=== PATIENT | male | born 1975 | race Caucasian/White ===

== ENCOUNTER 2017-07-19 19:01 | Observation (INO) | payer OTHER ==
[~2017-07-19] VITALS: Ht 182.9 cm; Wt 114.1 kg
[2017-07-19] MEDS ORDERED: NITROGLYCERIN 0.4 MG SL TABS BTL 25'S SL ONE (19:06)
[2017-07-19] MEDS ORDERED: ASPIRIN 81 MG CHEW (CHILDREN'S ASA) ONE (19:08)
[2017-07-19] MEDS ORDERED: ASPIRIN 81 MG CHEW (CHILDREN'S ASA) PO ONE (19:15)
[2017-07-19] MEDS ORDERED: NITROGLYCERIN 0.4 MG SL TABS BTL 25'S SL PRN ×2 (19:15→22:15)
--- NOTE | 2017-07-19 19:28 | ED Chest Pain ---
General Stated Complaint: CHEST PAIN, LT ARM PAIN Source: patient History of Present Illness Time seen by provider: 19:10 Initial Comments PT ARRIVES VIA POV C/O CHEST PAIN PT STATES HE HAD CLIMBED INTO HIS DEER STAND WHEN PAIN BEGAN--STATES PAIN WAS SO BAD HE LEFT HIS DEER STAND WITH MULTIPLE DEER UNDER HIM AND GREAT WEATHER FOR HUNTING, SOMETHING HE WOULD NEVER DO IF HE WASN'T HURTING SO BAD. RATES PAIN 8/10 AT WORST, 5/10 NOW--SQUEEZING/PRESSURE IN CHEST AND HAS "INDIGESTION" PAIN INCREASES WITH ANY ACTIVITY AND EASES WITH REST + TINGLING AND PAIN DOWN LEFT ARM + SWEATS + NAUSEA + SHORTNESS OF BREATH NO SWELLING IN LEGS/ FEET OR PAIN IN CALVES --NO RECENT TRAVEL, PROLONGED SITTING, ETC. HAD SAME THING 1 1/2-2 WEEKS AGO, LASTED FOR 4 DAYS OFF AND ON--DID NOT SEEK CARE HAS HAD SIMILAR AND WAS LAST SEEN APPROXIMATELY A YEAR AGO--SEEN AT SHOW LOW, WAS THOUGHT TO BE GERD AND ANXIETY--PT HAS HAD RACHEL FUNDOPLICATION PCP: DR. Caleb SIERRA, SHOW LOW--BUT HAS NOT SEEN IN A LONG TIME-STATES HE NEVER GOES TO THE DR. Allergies and Home Medications Allergies Coded Allergies: No Known Drug Allergies (Unverified , 07/19/17) Review of Systems Constitutional: see HPI, diaphoresis, No dizziness EENTM: No Symptoms Reported Respiratory: See HPI, Denies Cough, Denies Orthopnea, Shortness of Air, SOA With Exertion Cardiovascular: See HPI, Chest Pain, Denies Edema, Denies Irregular Heart Rate , Denies Lightheadedness, Denies Palpitations, Denies Syncope Gastrointestinal: See HPI, Denies Abdominal Pain, Nausea, Denies Vomiting Genitourinary: No Symptoms Reported Musculoskeletal: see HPI Skin: no symptoms reported Psychiatric/Neurological: See HPI Endocrine: No Symptoms Reported Hematologic/Lymphatic: No Symptoms Reported Past Mmauups-Qvtvqs-Gzstrh Hx Patient Social History Alcohol Use: Occasionally Uses Recreational Drug Use: No Type Used: Smokeless Tobacco Surgeries History of Surgeries: Yes (EGD'S; RACHEL FUNDOPLICATION) Surgeries: Abdominal (RACHEL FUNDOPLICATION) Respiratory History of Respiratory Disorde: No Cardiovascular History of Cardiac Disorders: No Neurological History of Neurological Disord: No Genitourinary History of Genitourinary Disor: No Gastrointestinal History of Gastrointestinal Di: Yes Gastrointestinal Disorders: Gastroesophageal Reflux, Hiatal Hernia Musculoskeletal History of Musculoskeletal Dis: Yes (RIGHT TIB-FIB FX, NO SURGERY) Musculoskeletal Disorders: Fractures Endocrine History of Endocrine Disorders: No HEENT History of HEENT Disorders: No Cancer History of Cancer: No Psychosocial History of Psychiatric Problem: No Integumentary History of Skin or Integumenta: No Blood Transfusions History of Blood Disorders: No Family Medical History Significant Family History: Heart Disease (BOTH PARENTS HAD NE'S, MOM HAD CHF) , CAD Over 55 Years Old (MOM AGE 62 OF CAD/NE/CHF, DAD AGE 72 OF CAD/ CVA), Stroke (DAD) Physical Exam Vital Signs Vital Sign - Last 12Hours Capillary Refill : General Appearance: No Apparent Distress, WD/WN HEENT: PERRL/EOMI Neck: Full Range of Motion, Normal Inspection, Non Tender, Supple, No Carotid Bruit, No JVD Respiratory: Chest Non Tender, Normal Breath Sounds, No Accessory Muscle Use, No Respiratory Distress Cardiovascular: Regular Rate, Rhythm, No Edema, No JVD, No Murmur, Normal Peripheral Pulses Gastrointestinal: Normal Bowel Sounds, No Organomegaly, No Pulsatile Mass, Non Tender, Soft Extremity: Normal Capillary Refill, Normal Inspection, Normal Range of Motion, Non Tender, No Calf Tenderness, No Pedal Edema Neurologic/Psychiatric: Alert, Oriented x3, No Motor/Sensory Deficits, Normal Mood/Affect, 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 and 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 II-XII Norm as Tested Skin: Normal Color, Warm/Dry Progress/Results/Core Measures Results/Orders Lab Results Laboratory Tests Test 07/19/17 19:15 Range/Units White Blood Count 6.7 4.3-11.0 10^3/uL Red Blood Count 5.31 4.35-5.85 10^6/uL Hemoglobin 15.8 13.3-17.7 G/DL Hematocrit 47 40-54 % Mean Corpuscular Volume 88 80-99 FL Mean Corpuscular Hemoglobin 30 25-34 PG Mean Corpuscular Hemoglobin Concent 34 32-36 G/DL Red Cell Distribution Width 12.3 10.0-14.5 % Platelet Count 217 130-400 10^3/uL Mean Platelet Volume 10.8 H 7.4-10.4 FL Neutrophils (%) (Auto) 57 42-75 % Lymphocytes (%) (Auto) 24 12-44 % Monocytes (%) (Auto) 14 H 0-12 % Eosinophils (%) (Auto) 5 0-10 % Basophils (%) (Auto) 0 0-10 % Neutrophils # (Auto) 3.8 1.8-7.8 X 10^3 Lymphocytes # (Auto) 1.6 1.0-4.0 X 10^3 Monocytes # (Auto) 0.9 0.0-1.0 X 10^3 Eosinophils # (Auto) 0.4 H 0.0-0.3 10^3/uL Basophils # (Auto) 0.0 0.0-0.1 10^3/uL Prothrombin Time 12.5 12.2-14.7 SEC INR Comment 0.9 0.8-1.4 Activated Partial Thromboplast Time 25 24-35 SEC Sodium Level 140 135-145 MMOL/L Potassium Level 4.1 3.6-5.0 MMOL/L Chloride Level 104 98-107 MMOL/L Carbon Dioxide Level 26 21-32 MMOL/L Anion Gap 10 5-14 MMOL/L Blood Urea Nitrogen 14 7-18 MG/DL Creatinine 1.08 0.60-1.30 MG/DL Estimat Glomerular Filtration Rate > 60 BUN/Creatinine Ratio 13 Glucose Level 89 70-105 MG/DL Calcium Level 10.1 8.5-10.1 MG/DL Magnesium Level 2.2 1.8-2.4 MG/DL Total Bilirubin 0.3 0.1-1.0 MG/DL Aspartate Amino Transf (AST/SGOT) 23 5-34 U/L Alanine Aminotransferase (ALT/SGPT) 40 0-55 U/L Alkaline Phosphatase 84 40-136 U/L Total Creatine Kinase 282 H 30-200 U/L Creatine Kinase MB 3.8 <6.6 NG/ML Troponin I < 0.30 <0.30 NG/ML B-Type Natriuretic Peptide < 10.0 <100.0 PG/ML Total Protein 7.8 6.4-8.2 GM/DL Albumin 4.6 H 3.2-4.5 GM/DL Amylase Level 46 25-125 U/L Lipase 14 8-78 U/L My Orders Orders - GURJIT YOUNG DO Amylase (07/19/17 19:12) Cbc With Automated Diff (07/19/17 19:12) Comprehensive Metabolic Panel (07/19/17 19:12) Creatine Kinase (10/3/17 19:12) Creatine Kinase Mb (07/19/17 19:12) Lipase (07/19/17 19:12) Partial Thromboplastin Time (07/19/17 19:12) Protime With Inr (07/19/17 19:12) Troponin I (07/19/17 19:12) Chest 1 View, Ap/Pa Only (07/19/17 19:12) O2 (07/19/17 19:12) Nitroglycerin 0.4 Mg Btl 25's (Nitrostat (07/19/17 19:06) Ekg Tracing (07/19/17 19:12) BNP (07/19/17 19:12) Monitor-Rhythm Ecg Trace Only (07/19/17 19:12) Magnesium (07/19/17 19:12) Aspirin Chewable Tablet (Baby Aspirin Ch (07/19/17 19:15) Nitroglycerin 0.4 Mg Btl 25's (Nitrostat (07/19/17 19:15) Aspirin Chewable Tablet (Baby Aspirin Ch (07/19/17 19:08) Acetaminophen Tablet (Tylenol Tablet) (07/19/17 19:30) Saline Lock/Iv-Start (07/19/17 19:37) Ns Iv 1000 Ml (Sodium Chloride 0.9%) (07/19/17 19:37) Nitroglycerin Ointment (Nitrobid Ointme (07/19/17 19:45) Ct Angio Chest W (07/19/17 20:06) Nitroglycerin Ointment (Nitrobid Ointme (07/19/17 20:15) Morphine Injection (Morphine Injection (07/19/17 20:11) Iohexol Injection (Omnipaque 350 Mg/Ml 1 (07/19/17 20:45) Ns (Ivpb) (Sodium Chloride 0.9% Ivpb Bag (07/19/17 20:45) Medications Given in ED Current Medications Medications Dose Ordered Sig/Naila Route Start Time Stop Time Status Last Admin Dose Admin Acetaminophen 1,000 mg ONCE ONCE PO 07/19/17 19:30 07/19/17 19:31 DC 07/19/17 19:26 1,000 MG Aspirin 324 mg ONCE ONCE PO 07/19/17 19:15 07/19/17 19:16 DC 07/19/17 19:07 324 MG Iohexol 150 ml ONCE ONCE IV 07/19/17 20:45 07/19/17 21:08 DC 07/19/17 20:33 125 ML Nitroglycerin 0.5 inch ONCE ONCE TOP 07/19/17 19:45 07/19/17 19:47 DC 07/19/17 19:50 0.5 INCH Nitroglycerin 1 TAB Q 5 MIN X 3 NEEDED PRN SL 07/19/17 19:15 07/19/17 22:11 DC 07/19/17 19:20 0.4 MG Nitroglycerin 1 inch ONCE ONCE TOP 07/19/17 20:15 07/19/17 20:16 DC 07/19/17 20:19 1 INCH Sodium Chloride 100 ml ONCE ONCE IV 07/19/17 20:45 07/19/17 21:08 DC 07/19/17 20:34 80 ML Sodium Chloride 1,000 ml @ 0 mls/hr Q0M ONCE IV 07/19/17 19:37 07/19/17 19:38 DC 07/19/17 20:18 1,000 MLS/HR Vital Signs/I&O Vital Sign - Last 12Hours 07/19/17 07/19/17 07/19/17 19:03 19:03 19:03 Temp 97.8 Pulse 92 Resp 18 B/P (MAP) 144/118 Pulse Ox 97 99 O2 Delivery Room Air Nasal Cannula Room Air Progress Note : Progress Note PAIN -FREE WITH NTG X 1, INITIALLY, THEN PAIN AND SHORTNESS OF BREATH GRADUALLY RETURNED--PT RESTLESS, STATING HE "CAN'T GET COMFORTABLE" DUE TO PAIN AND FEELING SHORT OF BREATH O2 SATS 92-94% ON ROOM AIR--UP TO 96-97% ON O2 AT 2L/NC GIVEN NITROPASTE FOR ELEVATED BP WELL CP/SOB--BOTH MUCH IMPROVED AT TIME OF ADMIT. BP DOWN TO 120'S/90'S ECG Initial ECG Impression Time: 19:05 Initial ECG Rate: 89 Initial ECG Rhythm: Normal Sinus Initial ECG Impression: Normal Initial ECG Comparisson: No Previous ECG Available Diagnostic Imaging Comments CXR--NO ACUTE PROCESS CT CHEST ANGIOGRAM--NO ACUTE PROCESS, SMALL HIATAL HERNIA, DIFFUSE HEPATIC STEATOSIS PER RADIOLOGIST REPORTS @ 2108 Reviewed: Reviewed by Me Departure Communication (Admissions) Progress Notes 2114--SPOKE WITH DR. BLANCHARD, ACCEPTS PT FOR ADMIT. WILL HAVE CARDIOLOGY CONSULTED IN AM Impression Impression: Primary Impression: Chest pain Additional Impression: HTN (hypertension) Disposition: ADMITTED INPATIENT Condition: Improved Departure-Patient Inst. Referrals: NO,LOCAL PHYSICIAN (PCP/Family) Primary Care Physician GURJIT YOUNG DO Jul 19, 2017 19:28
[2017-07-19 19:30] LABS: BASOPHILS % (AUTO) 0 % (0-10); EOSINOPHILS # (AUTO) 0.4 10^3/uL (0.0-0.3); EOSINOPHILS % (AUTO) 5 % (0-10); LYMPHOCYTES # (AUTO) 1.6 X 10^3 (1.0-4.0); LYMPHOCYTES % (AUTO) 24 % (12-44); MEAN CORPUSCULAR HEMOGLOBIN 30 PG (25-34); MEAN CORPUSCULAR HGB CONC 34 G/DL (32-36); MEAN CORPUSCULAR VOLUME 88 FL (80-99); MEAN PLATELET VOLUME 10.8 FL (7.4-10.4); MONOCYTES # (AUTO) 0.9 X 10^3 (0.0-1.0); MONOCYTES % (AUTO) 14 % (0-12); NEUTROPHILS # (AUTO) 3.8 X 10^3 (1.8-7.8); NEUTROPHILS % (AUTO) 57 % (42-75); PLATELET COUNT 217 10^3/uL (130-400); RED BLOOD COUNT 5.31 10^6/uL (4.35-5.85); RED CELL DISTRIBUTION WIDTH 12.3 % (10.0-14.5); WHITE BLOOD COUNT 6.7 10^3/uL (4.3-11.0)
[2017-07-19] MEDS ORDERED: ACETAMINOPHEN 500 MG TAB (TYLENOL) PO ONE (19:30)
[2017-07-19] MEDS ORDERED: NS IV 1000 ML 1,000 ML IV ONE (19:37)
[2017-07-19 19:40] LABS: INR 0.9 (0.8-1.4); PROTHROMBIN TIME PATIENT 12.5 SEC (12.2-14.7)
[2017-07-19] MEDS ORDERED: NITROGLYCERIN 2% OINT 1 GM UNIT DOSE PACKET TOP ONE ×2 (19:45→20:15)
[2017-07-19 19:52] LABS: ALANINE AMINOTRANSFERASE 40 U/L (0-55); ALBUMIN 4.6 GM/DL (3.2-4.5); AMYLASE 46 U/L (25-125); ANION GAP 10 MMOL/L (5-14); ASPARTATE AMINO TRANSFERASE 23 U/L (5-34); BILIRUBIN,TOTAL 0.3 MG/DL (0.1-1.0); BLOOD UREA NITROGEN 14 MG/DL (7-18); BUN/CREATININE RATIO 13; CALCIUM 10.1 MG/DL (8.5-10.1); CARBON DIOXIDE 26 MMOL/L (21-32); CHLORIDE 104 MMOL/L (98-107); CREATINE KINASE 282 U/L (30-200); CREATININE SERUM 1.08 MG/DL (0.60-1.30); GFR ESTIMATED > 60; GLUCOSE 89 MG/DL (70-105); LIPASE 14 U/L (8-78); MAGNESIUM 2.2 MG/DL (1.8-2.4); POTASSIUM 4.1 MMOL/L (3.6-5.0); SODIUM 140 MMOL/L (135-145); TOTAL PROTEIN 7.8 GM/DL (6.4-8.2)
[2017-07-19 19:59] LABS: TROPONIN I < 0.30 NG/ML (<0.30)
[2017-07-19] MEDS: morphine INJ 10 MG/ML 1ML (SYR OR VIAL) IVP STA ×2 (20:19→20:50)
--- NOTE | 2017-07-19 20:21 | Diagnostic Imaging Report ---
INDICATION: Chest pain COMPARISON: None FINDINGS: Upright portable view of the chest is obtained. Heart size is normal. The pulmonary vessels appear unremarkable. There is no pneumothorax, mediastinal widening or pleural fluid demonstrated. The lungs are clear. IMPRESSION: Negative chest Dictated by: Dictated on workstation # [id number]
[2017-07-19] MEDS ORDERED: NS 100 ML (IVPB) BAG IV ONE (20:45)
[2017-07-19] MEDS ORDERED: IOHEXOL 350 MG/ML 150 ML (OMNIPAQUE 350) VIAL IV ONE (20:45)
--- NOTE | 2017-07-19 21:04 | Diagnostic Imaging Report ---
PROCEDURE: CT angiography of the chest with contrast. TECHNIQUE: Multiple contiguous axial images were obtained through the chest after uneventful bolus administration of intravenous contrast. Reconstructed CTA MIP acquisitions were also performed. INDICATION: Chest pain COMPARISON: None FINDINGS: There is no evidence of pulmonary embolus or other acute vascular abnormality. There is some residual thymic tissue in the mediastinum. No adenopathy is demonstrated. There is no pneumothorax or pleural fluid demonstrated. There is a calcified granuloma in the right lung apex. A few additional calcified granulomata are noted. The lungs are otherwise clear. There is no pericardial effusion. There is a small hiatal hernia. There is diffuse hepatic steatosis. There is a probable cyst in the inferior right hepatic lobe. IMPRESSION: 1. No evidence of pulmonary embolus or other acute abnormality in the chest. 2. Small hiatal hernia 3. Diffuse hepatic steatosis and hepatic cysts Dictated by: Dictated on workstation # [id number]
[2017-07-19 22:14] VITALS: BP 125/83
[2017-07-19 22:15] VITALS: BP 129/81
[2017-07-19] MEDS ORDERED: morphine INJ 4 MG/ML 1 ML (VIAL/SYRINGE) IV PRN (22:15)
[2017-07-19 22:30] VITALS: BP 128/83
[2017-07-19 22:45] VITALS: BP 131/87
[2017-07-19] MEDS: ACETAMINOPHEN 500 MG TAB (TYLENOL) PO PRN (22:50)
[2017-07-19 23:00] VITALS: BP 116/79
[2017-07-20] VITALS (10 sets, daily range): BP systolic 99–133; BP diastolic 57–90
[2017-07-20] MEDS ORDERED: PANTOPRAZOLE 40 MG/10 ML (PROTONIX) VIAL IV ONE (00:15)
[2017-07-20] MEDS: CATHETER FLUSH 10 ML SYR IV PRN ×2 (00:23→12:16)
[2017-07-20 01:59] LABS: MYOGLOBIN SERUM 100.4 NG/ML (10.0-92.0)
[2017-07-20] MEDS ORDERED: NITROGLYCERIN 2% OINT 1 GM UNIT DOSE PACKET TOP SCH (02:00)
[2017-07-20 04:33] LABS: BASOPHILS % (AUTO) 0 % (0-10); EOSINOPHILS # (AUTO) 0.4 10^3/uL (0.0-0.3); EOSINOPHILS % (AUTO) 6 % (0-10); LYMPHOCYTES # (AUTO) 2.2 X 10^3 (1.0-4.0); LYMPHOCYTES % (AUTO) 36 % (12-44); MEAN CORPUSCULAR HEMOGLOBIN 30 PG (25-34); MEAN CORPUSCULAR HGB CONC 34 G/DL (32-36); MEAN CORPUSCULAR VOLUME 89 FL (80-99); MONOCYTES # (AUTO) 0.8 X 10^3 (0.0-1.0); MONOCYTES % (AUTO) 12 % (0-12); NEUTROPHILS # (AUTO) 2.9 X 10^3 (1.8-7.8); NEUTROPHILS % (AUTO) 46 % (42-75); PLATELET COUNT 209 10^3/uL (130-400); RED BLOOD COUNT 4.67 10^6/uL (4.35-5.85); RED CELL DISTRIBUTION WIDTH 12.4 % (10.0-14.5); WHITE BLOOD COUNT 6.2 10^3/uL (4.3-11.0)
[2017-07-20 05:00] LABS: ALANINE AMINOTRANSFERASE 32 U/L (0-55); ANION GAP 10 MMOL/L (5-14); ASPARTATE AMINO TRANSFERASE 16 U/L (5-34); BLOOD UREA NITROGEN 12 MG/DL (7-18); BUN/CREATININE RATIO 13; CALCIUM 8.7 MG/DL (8.5-10.1); CARBON DIOXIDE 24 MMOL/L (21-32); CHLORIDE 106 MMOL/L (98-107); CHOLESTEROL 165 MG/DL (< 200); CREATININE SERUM 0.95 MG/DL (0.60-1.30); DIRECT LDL 94 MG/DL (1-129); GFR ESTIMATED > 60; GLUCOSE 96 MG/DL (70-105); POTASSIUM 3.6 MMOL/L (3.6-5.0); SODIUM 140 MMOL/L (135-145); TOTAL PROTEIN 6.2 GM/DL (6.4-8.2); TRIGLYCERIDES 240 MG/DL (<150); VLDL CHOLESTEROL 48 MG/DL (5-40)
[2017-07-20 05:14] LABS: ALBUMIN 3.8 GM/DL (3.2-4.5); BILIRUBIN,TOTAL 0.4 MG/DL (0.1-1.0)
[2017-07-20] MEDS: CATHETER FLUSH 10 ML SYR IV SCH ×2 (06:01→13:22)
[2017-07-20] MEDS ORDERED: INFLUENZA TRIvalent 2017-2018 0.5 ML/45 MCG SYR IM ONE (07:15)
--- NOTE | 2017-07-20 08:42 | Consultation-Cardiology ---
HPI-Cardiology Cardiology Consultation: Date of Consultation 07/20/17 Time Seen by Provider: 08:15 Date of Admission 07-19-17 Attending Physician Freeman Blank MD Admitting Physician [place],Local Physician Consulting Physician Johnson Shepherd MD HPI: Chief Complaint: Chest pain Mr. Celaya is a 41 year old male admitted to ICU 12 from the ED with c/o chest pain. He reports he was in his deer [place] yesterday and had a gradual onset of epigastric pain which radiated across his upper abdomen and up into his chest. He reports the discomfort was a pressure. He reports nausea and some diaphoresis. He states he felt like he was having "gas pain". He reports he left his deer stand and went home. He states the discomfort lasted for several hours and he decided to come to the ED. He reports he has had this discomfort before, with the last episode being approx a week ago. He reports he has had several visits to the ED in [place], [place] and they have told him it is GERD. He does report some nausea, but no vomiting. He does report he has been having loose stools for the last 3 weeks and has been taking Probiotics. He does not report any dyspnea, palpitations, syncope or near syncope. No fever or chills. No LE edema. He is currently pain free. Review of Systems-Cardiology Review of Systems Constitutional: No chills, No fever, No lightheadedness Eyes: No blindness, No blurred vision, No contact lenses, No drainage, No decreased acuity, No foreign body sensation, No pain, No vision change Ears/Nose/Throat: No chronic hearing loss, No ear discharge, No ear pain, No nasal drainage, No ulcerations Respiratory: As described under HPI Cardiovascular: As described under HPI Gastrointestinal: abdomen distended, No abdominal pain, No blood streaked bowels, No constipation, diarrhea, nausea, No vomiting, No stool coloration changes Genitourinary: No burning, No dysuria, No discharge, No frequency, No flank pain, No hematuria, No urgency Skin: No rash, No skin related problems, No ulcerations Psychiatric/Neurological: No anxiety, No depression, No seizure, No focal weakness, No syncope Hematologic: No anemia, No bleeding abnormalities [facility]-G[facility]-[place] Hx Patient Social History Alcohol Use: Occasionally Uses Recreational Drug Use: No Type Used: Smokeless Tobacco Recent Foreign Travel: No Recent Infectious Disease Expo: No Hospitalization with Isolation: Denies Physical Abuse Screen: No Sexual Abuse: No Past Medical History PMH As described under Assessment. Family Medical History Family Medical History: He reports his mother at age 66 from a CVA and congestive heart failure. He reports his father also had a CVA. Family History: 19 FATHER, , Age:72 FH: lung cancer, Onset:Unknown FH: stomach cancer, Onset:Unknown FH: stroke, Onset:60 years & older 19 MOTHER, , Age:66 FH: stroke, Onset:Unknown FH: CHF (congestive heart failure), Onset:60 years & older FH: brain aneurysm, Onset:Unknown Allergies and Home Medications Allergies Coded Allergies: No Known Drug Allergies (Unverified , 07/19/17) Physical Exam-Cardiology Physical Exam Vital Signs/I&O Vital Sign - Last 12Hours 07/19/17 07/19/17 07/19/17 07/19/17 21:55 22:00 22:14 22:15 Temp 97.9 Pulse 79 78 79 Resp 18 16 B/P (MAP) 125/83 129/81 Pulse Ox 93 98 98 O2 Delivery Room Air Room Air Room Air 07/19/17 07/19/17 07/19/17 07/19/17 22:24 22:30 22:45 23:00 Pulse 86 88 86 76 B/P (MAP) 128/83 131/87 116/79 O2 Delivery Room Air Room Air Room Air 07/20/17 07/20/17 07/20/17 07/20/17 00:00 00:00 00:27 01:00 Temp 97.9 Pulse 83 83 83 B/P (MAP) 129/69 133/87 Pulse Ox 95 97 O2 Delivery Room Air Room Air Room Air 07/20/17 07/20/17 07/20/17 07/20/17 01:00 02:00 03:00 04:00 Temp 98.0 Pulse 83 74 69 95 B/P (MAP) 121/76 117/78 99/57 100/67 Pulse Ox 96 94 96 95 O2 Delivery Room Air Room Air Room Air Room Air 07/20/17 04:00 Pulse Ox 95 O2 Delivery Room Air Capillary Refill : Less Than 3 Seconds Constitutional: appears stated age, No apparent distress, well-developed, well- nourished HEENT: PERRL, No discharge, hearing is well preserved, oral hygience is good, No ulceration, No xanthelasmas are seen Neck: No carotid bruit, carotid pulses are 2 + bilaterally Respiratory: No accessory muscle use, No respiratory distress, chest expansion is symmetric, chest is bilaterally symmetric, lungs clear to percussion, lungs clear to auscultation Cardiovascular: regular rate-rhythm, No JVD, S1 and S2 Gastrointestinal: tender (epigastric), soft, round, No spleenomegaly Rectal: deferred Extremities: No clubbing, No cyanosis, No significant edema Neurologic/Psychiatric: alert, oriented x 3, power is 5/5 both on sides Skin: No rash, No ulcerations Data Review Labs Laboratory Tests 07/19/17 19:15: White Blood Count 6.7, Red Blood Count 5.31, Hemoglobin 15.8, Hematocrit 47, Mean Corpuscular Volume 88, Mean Corpuscular Hemoglobin 30, Mean Corpuscular Hemoglobin Concent 34, Red Cell Distribution Width 12.3, Platelet Count 217, Mean Platelet Volume 10.8H, Neutrophils (%) (Auto) 57, Lymphocytes (%) (Auto) 24 , Monocytes (%) (Auto) 14H, Eosinophils (%) (Auto) 5, Basophils (%) (Auto) 0, Neutrophils # (Auto) 3.8, Lymphocytes # (Auto) 1.6, Monocytes # (Auto) 0.9, Eosinophils # (Auto) 0.4H, Basophils # (Auto) 0.0, Prothrombin Time 12.5, INR Comment 0.9, Activated Partial Thromboplast Time 25, Sodium Level 140, Potassium Level 4.1, Chloride Level 104, Carbon Dioxide Level 26, Anion Gap 10, Blood Urea Nitrogen 14, Creatinine 1.08, Estimat Glomerular Filtration Rate > 60 , BUN/Creatinine Ratio 13, Glucose Level 89, Calcium Level 10.1, Magnesium Level 2.2, Total Bilirubin 0.3, Aspartate Amino Transf (AST/SGOT) 23, Alanine Aminotransferase (ALT/SGPT) 40, Alkaline Phosphatase 84, Total Creatine Kinase 282H, Creatine Kinase MB 3.8, Troponin I < 0.30, B-Type Natriuretic Peptide < 10.0, Total Protein 7.8, Albumin 4.6H, Amylase Level 46, Lipase 14 07/20/17 01:20: Troponin I < 0.30, Myoglobin 100.4H 07/20/17 04:25: White Blood Count 6.2, Red Blood Count 4.67, Hemoglobin 14.2, Hematocrit 42, Mean Corpuscular Volume 89, Mean Corpuscular Hemoglobin 30, Mean Corpuscular Hemoglobin Concent 34, Red Cell Distribution Width 12.4, Platelet Count 209, Mean Platelet Volume 10.0, Neutrophils (%) (Auto) 46, Lymphocytes (%) (Auto) 36 , Monocytes (%) (Auto) 12, Eosinophils (%) (Auto) 6, Basophils (%) (Auto) 0, Neutrophils # (Auto) 2.9, Lymphocytes # (Auto) 2.2, Monocytes # (Auto) 0.8, Eosinophils # (Auto) 0.4H, Basophils # (Auto) 0.0, Sodium Level 140, Potassium Level 3.6, Chloride Level 106, Carbon Dioxide Level 24, Anion Gap 10, Blood Urea Nitrogen 12, Creatinine 0.95, Estimat Glomerular Filtration Rate > 60, BUN/ Creatinine Ratio 13, Glucose Level 96, Calcium Level 8.7, Total Bilirubin 0.4, Aspartate Amino Transf (AST/SGOT) 16, Alanine Aminotransferase (ALT/SGPT) 32, Alkaline Phosphatase 70, Total Protein 6.2L, Albumin 3.8, Triglycerides Level 240H, Cholesterol Level 165, LDL Cholesterol Direct 94, VLDL Cholesterol 48H, HDL Cholesterol 39L Radiology NAME: [facility] REC#: [id number] PT STATUS: REG ER : 1975 PHYSICIAN: GURJIT YOUNG DO ADMIT DATE: 07/19/17/ER Signed Date of Exam: 07/19/17 CHEST 1 VIEW, AP/PA ONLY INDICATION: Chest pain COMPARISON: None FINDINGS: Upright portable view of the chest is obtained. Heart size is normal. The pulmonary vessels appear unremarkable. There is no pneumothorax, mediastinal widening or pleural fluid demonstrated. The lungs are clear. IMPRESSION: Negative chest Dictated by: Dictated on workstation # [id number] Dict: 07/19/172014 Trans: 07/19/172046 Interpreted by: MARTINE JOSEPH DO Electronically signed by: MARTINE JOSEPH DO 07/19/172046 NAME: [facility] REC#: [id number] PT STATUS: REG ER : 1975 PHYSICIAN: GURJIT YOUNG DO ADMIT DATE: 07/19/17/ER Signed Date of Exam: 07/19/17 CT ANGIO CHEST W PROCEDURE: CT angiography of the chest with contrast. TECHNIQUE: Multiple contiguous axial images were obtained through the chest after uneventful bolus administration of intravenous contrast. Reconstructed CTA MIP acquisitions were also performed. INDICATION: Chest pain COMPARISON: None FINDINGS: There is no evidence of pulmonary embolus or other acute vascular abnormality. There is some residual thymic tissue in the mediastinum. No adenopathy is demonstrated. There is no pneumothorax or pleural fluid demonstrated. There is a calcified granuloma in the right lung apex. A few additional calcified granulomata are noted. The lungs are otherwise clear. There is no pericardial effusion. There is a small hiatal hernia. There is diffuse hepatic steatosis. There is a probable cyst in the inferior right hepatic lobe. IMPRESSION: 1. No evidence of pulmonary embolus or other acute abnormality in the chest. 2. Small hiatal hernia 3. Diffuse hepatic steatosis and hepatic cysts Dictated by: Dictated on workstation # [id number] Dict: 07/19/172058 Trans: 07/19/172109 Interpreted by: MARTINE JOSEPH DO Electronically signed by: MARTINE JOSEPH DO 07/19/172109 ECG Impression ECG Initial ECG Rhythm: Normal Sinus A/P-Cardiology Assessment/Admission Diagnosis Chest discomfort of undetermined etiology Epigastric discomfort likely r/t hiatal hernia/GERD GERD - PPI tx H/O PUD H/O hiatal hernia H/O Dilshad-fundoplication H/O HTN - although tx was stopped by his PCP d/t episodes of low blood pressure Reports h/o stress test approx 3 years ago in [place], [place] which he reports as normal Chew tobacco use - cessation advised Fatty liver disease per CT of 07-19-17 Hypertriglyceridemia per lab of 07-20-17 Family h/o CV disease Discussion and Recomendations Chest discomfort of undetermined etiology. D/t c/o and risk factors we advise further cardiac work up. We advise MPI to be done today. He is agreeable. Diarrhea management per medical services. Continue PPI. Tobacco cessation advised. We discussed risk factor modification. We would like to thank medical services for this consult. Further recommendations will be based on his hospital course. This consult is being scribed by Jaquan Breen APRN on behalf of Dr. Shepherd after discussion regarding plan of care. Clinical Quality Measures DVT/VTE Risk/Contraindication: Risk Factor Score Per Nursin RFS Level Per Nursing on Admit: 2=Moderate Physician Assessment Physician Assessment Please refer to my separate note of the same date LESLIE BREEN Jul 20, 2017 08:42 JOHNSON SHEPHERD MD FACP FAC CCDS Jul 20, 2017 09:14
--- NOTE | 2017-07-20 08:44 | Consultation-Cardiology ---
HPI-Cardiology Cardiology Consultation: Date of Consultation 07/20/17 Time Seen by Provider: 08:15 Date of Admission 07/19/17 Attending Physician Freeman Blank MD Admitting Physician No,Local Physician Consulting Physician MAYDA ABERNATHY MD, MA, FACP, FACC, [facility] HPI: Chief Complaint: Chest discomfort HPI: 41 yo man with chest discomfort Onset: Approx 18 hours ago for this admission; has had it intermittently for a few years Duration: 2-3 hours at a time, episodic since yesterday Location: Epigastric and lower mid sternal Character: pressure Intensity: mild to mod Radiation: LUQ of the abdomen Aggravating factors: Pushing with fingers on the location Relieving factors: a combination of pain meds, PPI and nitro Frequency: once or twice a month Associated features: diarrhea (has had it a couple of months, intermittently); also intermittent nausea but no vomiting; also some shortness of breath with chest discomfort No other shortness of breath, palpitations or syncope. Sometimes has dizziness. No leg swelling. No recent fever or chills Review of Systems-Cardiology Review of Systems Constitutional: No lightheadedness, No malaise, No weight loss, No weight gain Eyes: No vision change Ears/Nose/Throat: No ear discharge, No nasal drainage, No recent hearing loss Respiratory: As described under HPI Cardiovascular: As described under HPI Gastrointestinal: As described under HPI Genitourinary: No dysuria, No hematuria, No urine frequency changes Musculoskeletal: No back pain, No joint pain Skin: No rash, No ulcerations Psychiatric/Neurological: No focal weakness, No syncope Hematologic: No bleeding abnormalities NNU-Wkttno-Regaws Hx Patient Social History Alcohol Use: Occasionally Uses Recreational Drug Use: No Smoking Status: Never a Smoker Type Used: Smokeless Tobacco Recent Foreign Travel: No Recent Infectious Disease Expo: No Hospitalization with Isolation: Denies Physical Abuse Screen: No Sexual Abuse: No Past Medical History PMH As described under Assessment. Family Medical History Family History: FH: CHF (congestive heart failure) 19 MOTHER, , Age:66, Onset:60 years & older FH: brain aneurysm 19 MOTHER, , Age:66, Onset:Unknown FH: lung cancer 19 FATHER, , Age:72, Onset:Unknown FH: stomach cancer 19 FATHER, , Age:72, Onset:Unknown FH: stroke 19 FATHER, , Age:72, Onset:60 years & older 19 MOTHER, , Age:66, Onset:Unknown Allergies and Home Medications Allergies Coded Allergies: No Known Drug Allergies (Unverified , 07/19/17) Physical Exam-Cardiology Physical Exam Vital Signs/I&O Vital Sign - Last 12Hours 07/19/17 07/19/17 07/19/17 07/19/17 21:55 22:00 22:14 22:15 Temp 97.9 Pulse 79 78 79 Resp 18 16 B/P (MAP) 125/83 129/81 Pulse Ox 93 98 98 O2 Delivery Room Air Room Air Room Air 07/19/17 07/19/17 07/19/17 07/19/17 22:24 22:30 22:45 23:00 Pulse 86 88 86 76 B/P (MAP) 128/83 131/87 116/79 O2 Delivery Room Air Room Air Room Air 07/20/17 07/20/17 07/20/17 07/20/17 00:00 00:00 00:27 01:00 Temp 97.9 Pulse 83 83 83 B/P (MAP) 129/69 133/87 Pulse Ox 95 97 O2 Delivery Room Air Room Air Room Air 07/20/17 07/20/17 07/20/17 07/20/17 01:00 02:00 03:00 04:00 Temp 98.0 Pulse 83 74 69 95 B/P (MAP) 121/76 117/78 99/57 100/67 Pulse Ox 96 94 96 95 O2 Delivery Room Air Room Air Room Air Room Air 07/20/17 04:00 Pulse Ox 95 O2 Delivery Room Air Capillary Refill : Less Than 3 Seconds Constitutional: AAO x 3, well-developed, well-nourished HEENT: PERRL, EOMI, No xanthelasmas are seen Neck: No carotid bruit, carotid pulses are 2 + bilaterally, with good upstrokes Respiratory: No accessory muscle use, lungs clear to percussion, lungs clear to auscultation Cardiovascular: regular rate-rhythm, S1 and S2, systolic murmur (faint SHANTA at cardiac base) Gastrointestinal: No tender, No soft, No guarding, No rebound, audible bowel sounds Extremities: No clubbing, No cyanosis Neurologic/Psychiatric: oriented x 3, No grossly intact, No power is 5/5 both on sides Skin: No rash on exposed areas, No ulcerations on exposed areas Data Review Labs Laboratory Tests 07/19/17 19:15: White Blood Count 6.7, Red Blood Count 5.31, Hemoglobin 15.8, Hematocrit 47, Mean Corpuscular Volume 88, Mean Corpuscular Hemoglobin 30, Mean Corpuscular Hemoglobin Concent 34, Red Cell Distribution Width 12.3, Platelet Count 217, Mean Platelet Volume 10.8H, Neutrophils (%) (Auto) 57, Lymphocytes (%) (Auto) 24 , Monocytes (%) (Auto) 14H, Eosinophils (%) (Auto) 5, Basophils (%) (Auto) 0, Neutrophils # (Auto) 3.8, Lymphocytes # (Auto) 1.6, Monocytes # (Auto) 0.9, Eosinophils # (Auto) 0.4H, Basophils # (Auto) 0.0, Prothrombin Time 12.5, INR Comment 0.9, Activated Partial Thromboplast Time 25, Sodium Level 140, Potassium Level 4.1, Chloride Level 104, Carbon Dioxide Level 26, Anion Gap 10, Blood Urea Nitrogen 14, Creatinine 1.08, Estimat Glomerular Filtration Rate > 60 , BUN/Creatinine Ratio 13, Glucose Level 89, Calcium Level 10.1, Magnesium Level 2.2, Total Bilirubin 0.3, Aspartate Amino Transf (AST/SGOT) 23, Alanine Aminotransferase (ALT/SGPT) 40, Alkaline Phosphatase 84, Total Creatine Kinase 282H, Creatine Kinase MB 3.8, Troponin I < 0.30, B-Type Natriuretic Peptide < 10.0, Total Protein 7.8, Albumin 4.6H, Amylase Level 46, Lipase 14 07/20/17 01:20: Troponin I < 0.30, Myoglobin 100.4H 07/20/17 04:25: White Blood Count 6.2, Red Blood Count 4.67, Hemoglobin 14.2, Hematocrit 42, Mean Corpuscular Volume 89, Mean Corpuscular Hemoglobin 30, Mean Corpuscular Hemoglobin Concent 34, Red Cell Distribution Width 12.4, Platelet Count 209, Mean Platelet Volume 10.0, Neutrophils (%) (Auto) 46, Lymphocytes (%) (Auto) 36 , Monocytes (%) (Auto) 12, Eosinophils (%) (Auto) 6, Basophils (%) (Auto) 0, Neutrophils # (Auto) 2.9, Lymphocytes # (Auto) 2.2, Monocytes # (Auto) 0.8, Eosinophils # (Auto) 0.4H, Basophils # (Auto) 0.0, Sodium Level 140, Potassium Level 3.6, Chloride Level 106, Carbon Dioxide Level 24, Anion Gap 10, Blood Urea Nitrogen 12, Creatinine 0.95, Estimat Glomerular Filtration Rate > 60, BUN/ Creatinine Ratio 13, Glucose Level 96, Calcium Level 8.7, Total Bilirubin 0.4, Aspartate Amino Transf (AST/SGOT) 16, Alanine Aminotransferase (ALT/SGPT) 32, Alkaline Phosphatase 70, Total Protein 6.2L, Albumin 3.8, Triglycerides Level 240H, Cholesterol Level 165, LDL Cholesterol Direct 94, VLDL Cholesterol 48H, HDL Cholesterol 39L A/P-Cardiology Assessment/Admission Diagnosis Chest discomfort w/o any evidence of ACS Hypertension Hiatal hernia for which he has had laparoscopic surgery at age 24. Has lately been told by his hot mill observer (Dr Parks) that he has recurrent hiatal hernia Chronic chewing tobacco use Discussion and Recomendations * Treat hypertension with bb, if needed * Echo to eval wall motion and EF * ETT-MPI to eval for CAD * D/c nitro because it is causing him headache * Management of GERD is with the Med Svce * Advised to quit tobacco use * I spoke with him in detail and answered questions Clinical Quality Measures DVT/VTE Risk/Contraindication: Risk Factor Score Per Nursin RFS Level Per Nursing on Admit: 2=Moderate MAYDA ABERNATHY MD [facility] CCDS Jul 20, 2017 08:44
[2017-07-20] MEDS ORDERED: ASPIRIN E.C. 325 MG (ECOTRIN) TABLET PO SCH (09:00)
[2017-07-20] MEDS ORDERED: PANTOPRAZOLE 40 MG/10 ML (PROTONIX) VIAL IV SCH (09:00)
[2017-07-20] MEDS ORDERED: L.AC1CAP6 PO (09:21)
[2017-07-20] MEDS ORDERED: LORA10TA7 PO (09:21)
[2017-07-20] MEDS ORDERED: OMEP20CA12 PO (09:21)
[2017-07-20] MEDS: ACETAMINOPHEN 500 MG TAB (TYLENOL) PO PRN (09:33)
--- NOTE | 2017-07-20 11:04 | Short Stay Summary-Hospitalist ---
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 He reports that he was nauseated had indigestion but the pain was 8/10 so he presented to the emergency room workup was negative including CT angiogram revealing no evidence of pulmonary embolism and overall meets criteria for risk stratification. He has an active lifestyle but does not exercise on a regular basis and on CT scan and it shows hepatic steatosis and he has high triglycerides. He doesn't smoke and he drinks occasionally he is . 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) Alcohol Use: Occasionally Uses Number of Drinks Today: 0 Alcohol Beverage of Choice: Beer Recreational Drug Use: No Smoking Status: Never a Smoker Type Used: Smokeless Tobacco Physical Abuse Screen: No Sexual Abuse: No Recent Foreign Travel: No Contact w/other who traveled: No Recent Hopitalizations: No Recent Infectious Disease Expo: No Immunizations Up To Date Pediatric: No Seasonal Allergies Seasonal Allergies: Yes Surgeries Yes (EGD'S; RACHEL FUNDOPLICATION) Abdominal Respiratory No Currently Using CPAP: No Currently Using BIPAP: No Cardiovascular Yes (USED TO BE ON BP MEDS, HAS CURRENT CHEST PRESSURE) High Cholesterol, Hypertension Neurological Yes Headaches /Migraines Genitourinary No Gastrointestinal Yes (UMBILICAL HERNIA(CURRENT)) Gastroesophageal Reflux, Hiatal Hernia Musculoskeletal Yes (RIGHT TIB-FIB FX, NO SURGERY) Fractures Endocrine History of Endocrine Disorders: No HEENT History of HEENT Disorders: Yes (DETACHED RETINA LEFT EYE(SX)) Cancer No Psychosocial History of Psychiatric Problem: No Integumentary History of Skin or Integumenta: No Blood Transfusions History of Blood Disorders: No Family Medical History Significant Family History: Heart Disease (BOTH PARENTS HAD VT'S, MOM HAD CHF) , CAD Over 55 Years Old (MOM AGE 62 OF CAD/VT/CHF, DAD AGE 72 OF CAD/ CVA), Stroke (DAD) Family Hx: FH: CHF (congestive heart failure) 19 MOTHER, , Age:66, Onset:60 years & older FH: brain aneurysm 19 MOTHER, , Age:66, Onset:Unknown FH: lung cancer 19 FATHER, , Age:72, Onset:Unknown FH: stomach cancer 19 FATHER, , Age:72, Onset:Unknown FH: stroke 19 FATHER, , Age:72, Onset:60 years & older 19 MOTHER, , Age:66, Onset:Unknown Review of Systems Constitutional: see HPI EENTM: no symptoms reported Respiratory: short of breath Cardiovascular: chest pain Gastrointestinal: nausea Genitourinary: no symptoms reported Musculoskeletal: no symptoms reported Skin: no symptoms reported Psychiatric/Neurological: No Symptoms Reported All Other Systems Reviewed Negative Unless Noted: Yes Physical Exam Physical Exam Vital Signs Vital Sign - Last 12Hours Capillary Refill : Less Than 3 Seconds General Appearance: No Apparent Distress, WD/WN, Obese Eyes: Bilateral Eye Normal Inspection, Bilateral Eye PERRL HEENT: PERRL/EOMI, Normal ENT Inspection, Pharynx Normal Neck: Full Range of Motion, Normal Inspection, Non Tender, Supple, Carotid Bruit Respiratory: Chest Non Tender, Lungs Clear, Normal Breath Sounds, No Accessory Muscle Use, No Respiratory Distress Cardiovascular: Regular Rate, Rhythm, No Edema, No Gallop, No JVD, No Murmur, Normal Peripheral Pulses Gastrointestinal: Normal Bowel Sounds, No Organomegaly, No Pulsatile Mass, Non Tender, Soft Back: Normal Inspection, No CVA Tenderness, No Vertebral Tenderness Extremity: Normal Capillary Refill, Normal Inspection, Normal Range of Motion, Non Tender, No Calf Tenderness, No Pedal Edema Neurologic/Psychiatric: Alert, Oriented x3, No Motor/Sensory Deficits, Normal Mood/Affect Skin: Normal Color, Warm/Dry Lymphatic: No Adenopathy Results Results/Procedures Lab Laboratory Tests 07/19/17 19:15 07/20/17 04:25 Short Stay Diagnosis Discharge Diagnosis-Short Stay Admission Diagnosis Assessment: Chest pain with negative CT angiogram but risk factors for heart disease undergoing stress test today by Dr. Shepherd Hepatic steatosis on CT scan Hypertension Hyperglyceridemia Obesity Final Discharge Diagnosis Assessment: Chest pain with negative CT angiogram but risk factors for heart disease undergoing stress test today by Dr. Shepherd Hepatic steatosis on CT scan Hypertension Hyperglyceridemia Obesity Conclusion Plan Plan: Cardiac stress test per Dr. Shepherd Monitor blood pressure closely Risk stratification per cardiology Clinical Quality Measures DVT/VTE Risk/Contraindication: Risk Factor Score Per Nursin RFS Level Per Nursing on Admit: 2=Moderate MADHURI CAMARENA DO Jul 20, 2017 11:04
--- NOTE | 2017-07-20 16:54 | Discharge Inst-Cardiology ---
Discharge Inst-Cardiac Patient Instructions Patient Instructions: F/u with Dr Shepherd in 2 weeks MAYDA SHEPHERD MD [facility] CCDS Jul 20, 2017 16:54
[2017-07-20] MEDS ORDERED: PANT40TA2 PO (16:56)
--- NOTE | 2017-07-21 09:27 | STRESS TEST ---
DATE OF SERVICE: 07/20/2017 RESTING AND POST REGADENOSON TECHNETIUM 99M TETROFOSMIN SPECT CT IMAGING DATE OF PROCEDURE: 07/20/2017. ORDERING PHYSICIAN: Dr. Shepherd. PRIMARY CARE PHYSICIAN: Dr. Blank. CLINICAL DIAGNOSIS: Chest discomfort. Baseline images were carried out after injection of 10.92 mCi of Technetium 99m Tetrofosmin. This was followed by exercise on a treadmill. Artie protocol was employed. Heart rate and blood pressure responses to exercise were normal. The test was stopped on account of fatigue. He had some baseline epigastric discomfort that did not change during the study. There was no significant ST segment deviation with exercise. There was no significant arrhythmia. Overall, he tolerated the procedure well. He exercised for a total of 12 minutes. He attained 12.3 mets of workload. He attained 94% of maximum predicted heart rate. Review of images at rest and following stress does not indicate any distinct perfusion defects consistent with significant myocardial ischemia or infarction. Gated images show normal global left ventricular systolic function with normal regional wall motion. Left ventricular ejection fraction is calculated to be 51%. Left ventricular end diastolic volume is 109 mL. TID is absent (0.98%). CONCLUSIONS: 1. No evidence of any significant myocardial ischemia or infarction on this study. 2. Normal regional wall motion. 3. Normal global left ventricular systolic function with a calculated ejection fraction of 51%. Job ID: [id number] DocumentID: [id number] Dictated Date: 07/20/2017 16:46:02 Human Service Technician Date: 07/21/2017 08:11:11 Dictated By: MAYDA SHEPHERD MD, MA, FACP, FACC,
== END 2017-07-20 17:35 | disposition home or self-care (01) ==
LOC: ER 19:03 → ICU 21:29 → UNDOADMOB 21:29 → ICU 22:00 → UNDODISOB 07-20 17:35
PROVIDERS: ADMIT Internal Medicine; ATTEND Internal Medicine
DX: E66.9 Obesity, unspecified; R07.9 Chest pain, unspecified; K76.0 Fatty (change of) liver, not elsewhere classified; K76.89 Other specified diseases of liver; E78.1 Pure hyperglyceridemia; F17.220 Nicotine dependence, chewing tobacco, uncomplicated; I10 Essential (primary) hypertension; K44.9 Diaphragmatic hernia without obstruction or gangrene
CPT/HCPCS: 36415; 71010; 71275; 78452; 80053; 80061; 82150; 82550; 82553; 83690; 83735; 83874; 83880; 84484; 85025; 85610; 85730; 93005; 93017; 93041; 93306; 96360; 96361